=== PATIENT | female | born 1995 | race Caucasian/White ===

== ENCOUNTER 2020-05-13 17:18 | Emergency (ER) | payer MEDICAID ==
[~2020-05-13] VITALS: Ht 162.6 cm; Wt 80.0 kg
[~2020-05-13 17:18] MED LIST: AZIT500T3 PO; NORG1TAB53 PO; PROM25TA13 PO
[2020-05-13] MEDS ORDERED: KETOROLAC 30MG/ML VIAL IM ONE (18:15)
[2020-05-13 20:00] VITALS: BP 115/86
== END 2020-05-13 20:10 | disposition home or self-care (01) ==
LOC: ER 17:18
DX: S92.355A Nondisplaced fracture of fifth metatarsal bone, left foot, initial encounter for closed fracture (principal); W10.8XXA Fall (on) (from) other stairs and steps, initial encounter; Y93.89 Activity, other specified; Y92.89 Other specified places as the place of occurrence of the external cause
CPT/HCPCS: 73630; 96372; 99283; J1885; Z7610

== ENCOUNTER 2021-06-17 16:41 | Emergency (ER) | payer MEDICAID, MEDICARE ==
[~2021-06-17] VITALS: Ht 162.6 cm; Wt 90.0 kg
[2021-06-17] MEDS ORDERED: TRAMADOL 50MG TABLET PO ONE (18:15)
[2021-06-17 18:59] LABS: CLARITY URINE CLEAR (CLEAR); COLOR URINE YELLOW (YELLOW); KETONES URINE NEGATIVE (NEGATIVE); LEUKOCYTE ESTERASE URINE NEGATIVE (NEGATIVE); NITRITE URINE NEGATIVE (NEGATIVE); OCCULT BLOOD URINE 2+ (NEGATIVE); PROTEIN URINE NEGATIVE (NEGATIVE); SPECIFIC GRAVITY URINE 1.029 (1.005-1.030); UROBILINOGEN URINE 0.2 E.U./dL (0.2-1.0)
[2021-06-17 19:42] LABS: BASOPHILS % 0.5 % (0.0-2.0); EOSINOPHILS % 1.1 % (0.0-5.0); HEMOGLOBIN. 12.8 g/dL (12.0-16.0); LYMPHOCYTES % 24.4 % (20.0-50.0); MEAN CORPUSCULAR HEMOGLOBIN 28.9 pg (28.0-32.0); MEAN CORPUSCULAR VOLUME 85.6 fL (81.0-99.0); MONOCYTES % 5.9 % (2.0-8.0); NEUTROPHILS % 68.1 % (40.0-76.0); PLATELET 306 x1000/uL (130-400); RED BLOOD CELL COUNT 4.44 mill/uL (4.2-5.4); RED CELL DISTRIBUTION WIDTH 13.5 % (11.6-14.6)
[2021-06-17] MEDS ORDERED: CIPR250S3 MT (19:58)
[2021-06-17 20:00] VITALS: BP 117/68
== END 2021-06-17 20:15 | disposition home or self-care (01) ==
LOC: ER 16:41
DX: N30.90 Cystitis, unspecified without hematuria (principal); Z79.899 Other long term (current) drug therapy
CPT/HCPCS: 36415; 76705; 81003; 81025; 85025; 99284